=== PATIENT | male | born 1985 | race Caucasian/White ===

== ENCOUNTER 2023-09-08 02:12 | Emergency (ER) | payer SELFPAY ==
[~2023-09-08] VITALS: Ht 172.7 cm; Wt 97.8 kg
[2023-09-08 02:18] VITALS: O2SAT 100
[2023-09-08 03:19] VITALS: BP 148/92; PULSE 92; RESP 16
[2023-09-08] MEDS: KETOROLAC 30MG/ML VIAL IV STA (03:19)
[2023-09-08] MEDS: SODIUM CHLORIDE 0.9% 1,000 ML IV ONE (03:30)
[2023-09-08 03:46] LABS: DIFFERENTIAL COMMENT 0; EOSINOPHILS % 3.4 % (0.0-5.0); HEMATOCRIT. 44.2 % (42.0-52.0); HEMOGLOBIN. 15.2 g/dL (14.0-18.0); LYMPHOCYTES % 31.7 % (20.0-50.0); MEAN CORPUSCULAR HEMOGLOBIN 27.2 pg (28.0-32.0); MEAN CORPUSCULAR HGB CONC 34.3 g/dL (31.0-37.0); MEAN CORPUSCULAR VOLUME 79.3 fL (80.0-94.0); MEAN PLATELET VOLUME 8.1 fl (7.4-10.4); MONOCYTES % 7.9 % (2.0-8.0); PLATELET 241 x1000/uL (130-400); RED BLOOD CELL COUNT 5.57 mill/uL (4.7-6.1); RED CELL DISTRIBUTION WIDTH 13.5 % (11.6-14.6)
[2023-09-08 03:48] LABS: CHLORIDE 103 mEq/L (98-107); POTASSIUM 3.9 mEq/L (3.5-5.1); SODIUM 137 mEq/L (136-145)
[2023-09-08 03:49] LABS: CALCIUM 9.2 mg/dL (8.7-10.4); CARBON DIOXIDE 26 mEq/L (21-32)
[2023-09-08 03:54] LABS: CREATININE 1.1 mg/dL (0.6-1.3); GLUCOSE 110 mg/dL (70-105); UREA NITROGEN BLOOD 14 mg/dL (9-23)
[2023-09-08 06:15] VITALS: TEMP 98.3
[2023-09-08] MEDS: ACETAMINOPHEN 325MG TABLET PO ONE (06:15)
[2023-09-08] MEDS ORDERED: NITR100C PO (06:53)
[2023-09-08] MEDS ORDERED: TOPUD PO (06:53)
== END 2023-09-08 07:39 | disposition home or self-care (01) ==
LOC: ER 02:20
DX: N20.0 Calculus of kidney (principal)
CPT/HCPCS: 80048; 85025; 36415; 74176; 96361; 96374; 99285; J1885; J7030; Z7610